=== PATIENT | female | born 1990 | race Caucasian/White ===

== ENCOUNTER 2019-01-17 20:30 | Emergency (ER) | payer OTHER ==
[~2019-01-17] VITALS: Ht 172.7 cm; Wt 76.7 kg
[2019-01-17 20:38] VITALS: Ht 172.7 cm; Wt 76.7 kg
[2019-01-17 21:36] LABS: BASOPHIL % 0.2 % (0-2); PLATELET COUNT 425 x10^3mcL (130-400); RED CELL DISTRIBUTION WIDTH 13.5 % (11.5-14.5)
[2019-01-17 21:40] LABS: CALCIUM 9.4 mg/dL (8.5-10.1); CARBON DIOXIDE 23.2 mmol/L (21-32); CHLORIDE SERUM 97 mmol/L (98-107); CREATININE SERUM 0.9 mg/dL (0.6-1.0); GFR1 > 60 mL/min; GLUCOSE SERUM 104 mg/dL (74-106); POTASSIUM SERUM 4.4 mmol/L (3.5-5.1); SODIUM SERUM 139 mmol/L (136-145)
[2019-01-17 21:49] LABS: ALBUMIN 4.5 g/dL (3.4-5.0); ALKALINE PHOSPHATASE 84 U/L (46-116); ALT/SGPT 35 U/L (14-59); AST/SGOT 21 U/L (15-37); BILIRUBIN TOTAL 1.1 mg/dL (0.20-1.00); TOTAL PROTEIN, SERUM 8.9 g/dL (6.4-8.2)
[2019-01-18 00:22] LABS: UA SPECIFIC GRAVITY >=1.030 (1.005-1.035); microscopic required? YES; urine erythrocyte TRACE (NEGATIVE)
[2019-01-18 01:17] VITALS: BP 119/81
== END 2019-01-18 01:17 | disposition home or self-care (01) ==
LOC: ED 20:30
PROVIDERS: Emergency Medicine
DX: F10.239 Alcohol dependence with withdrawal, unspecified (principal); Y90.9 Presence of alcohol in blood, level not specified
CPT/HCPCS: J2060; J2405; J7030; Q0092

== ENCOUNTER 2019-03-16 18:38 | Inpatient (IN) | payer OTHER ==
[~2019-03-16] VITALS: Ht 170.2 cm; Wt 69.1 kg
[2019-03-16 19:31] VITALS: Ht 170.2 cm; Wt 69.1 kg
[2019-03-16 21:04] LABS: BASOPHIL % 0.3 % (0-2); PLATELET COUNT 339 x10^3mcL (130-400); RED CELL DISTRIBUTION WIDTH 12.3 % (11.5-14.5)
[2019-03-16 21:17] LABS: UA SPECIFIC GRAVITY >=1.030 (1.005-1.035); microscopic required? YES; urine erythrocyte TRACE (NEGATIVE)
[2019-03-16 21:18] LABS: CALCIUM 9.3 mg/dL (8.5-10.1); CARBON DIOXIDE 17.3 mmol/L (21-32); CHLORIDE SERUM 102 mmol/L (98-107); CREATININE SERUM 0.8 mg/dL (0.6-1.0); GFR1 > 60 mL/min; GLUCOSE SERUM 85 mg/dL (74-106); POTASSIUM SERUM 3.4 mmol/L (3.5-5.1); SODIUM SERUM 138 mmol/L (136-145)
[2019-03-16 21:30] LABS: T3 TOTAL 1.03 ng/mL
[2019-03-16 21:36] LABS: FREE T4 1.29 ng/dL (0.76-1.46); FREE THYROXINE INDEX 3.5 ug/dL (1.4-4.5)
[2019-03-16 21:43] LABS: AMPHETAMINE QUAL UR NONE DETECTED (See below)
[2019-03-16 21:49] LABS: ERYTHROCYTE SED RATE 16 mm/hr (0-20)
[2019-03-16 21:51] LABS: ALBUMIN 4.5 g/dL (3.4-5.0); ALKALINE PHOSPHATASE 67 U/L (46-116); ALT/SGPT 26 U/L (14-59); AST/SGOT 18 U/L (15-37); BILIRUBIN TOTAL 0.7 mg/dL (0.20-1.00); C REACTIVE PROTEIN 0.2 mg/dL (<=0.9); TOTAL PROTEIN, SERUM 8.7 g/dL (6.4-8.2)
[2019-03-16] MEDS ORDERED: ONDANSETRON4 M3 PO (22:31)
[2019-03-16] MEDS ORDERED: ESCITALOPRAM OX10 MG PO (22:31)
[2019-03-16 23:20] VITALS: BP 118/94
[2019-03-17 05:10] VITALS: BP 119/74
[2019-03-17 06:21] LABS: BASOPHIL % 0.3 % (0-2); PLATELET COUNT 253 x10^3mcL (130-400); RED CELL DISTRIBUTION WIDTH 12.6 % (11.5-14.5)
[2019-03-17 07:02] LABS: ALKALINE PHOSPHATASE 49 U/L (46-116); ALT/SGPT 22 U/L (14-59); AST/SGOT 15 U/L (15-37); BILIRUBIN TOTAL 0.5 mg/dL (0.20-1.00); CALCIUM 8.2 mg/dL (8.5-10.1); CARBON DIOXIDE 21.1 mmol/L (21-32); CHLORIDE SERUM 107 mmol/L (98-107); CREATININE SERUM 0.7 mg/dL (0.6-1.0); GFR1 > 60 mL/min; GLUCOSE SERUM 84 mg/dL (74-106); MAGNESIUM 1.8 mg/dL (1.8-2.4); POTASSIUM SERUM 3.6 mmol/L (3.5-5.1); SODIUM SERUM 141 mmol/L (136-145); TOTAL PROTEIN, SERUM 6.3 g/dL (6.4-8.2)
[2019-03-17 07:03] LABS: ALBUMIN 3.2 g/dL (3.4-5.0)
[2019-03-17 09:24] VITALS: BP 114/69
[2019-03-17 12:46] VITALS: BP 124/84
[2019-03-17 16:15] VITALS: BP 129/91
[2019-03-17 16:34] VITALS: BP 124/84
== END 2019-03-17 18:17 | disposition home or self-care (01) | DRG 392 ==
LOC: ED 18:38 → MU 22:16
PROVIDERS: Internal Medicine Pulmonary Disease; Specialist; ADMIT Internal Medicine Pulmonary Disease
DX: A08.4 Viral intestinal infection, unspecified (principal); E87.3 Alkalosis; J45.909 Unspecified asthma, uncomplicated; E86.0 Dehydration; Z23 Encounter for immunization; Z79.899 Other long term (current) drug therapy
CPT/HCPCS: 84439; 87804; 90658; G0378; G0480; J0780; J1885; J2060; J2405; J7030; J7042; J7120; Q0092